=== PATIENT | male | born 1970 | race Caucasian/White ===

== ENCOUNTER → 2018-01-28 | Day surgery (SDC) | payer OTHER ==
[~2018-01-28] VITALS: Ht 182.9 cm; Wt 88.0 kg
--- NOTE | 2018-01-28 13:26 | Operative Report ---
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 Anesthesia: general endotracheal tube Operative/Procedure Note Note: Yaya as he is known was brought to the operating room after a suitable block was placed by anesthesia intravenous Kefzol was given sterile prep and drape was performed from the knee down to the foot proper timeout was performed and surgery was commenced with an Esmarch bandage used as tourniquet above the malleoli 8 medial incision was made over the hallux medial HALUCEAL nerve was discovered and protected throughout the procedure local bleeders were controlled with sparse use of clamp and cautery A longitudinal capsulotomy was made the sagittal sulcus of the first metatarsal was discovered a longitudinal bunionectomy was performed with a saw A Chevron osteotomy was now performed proximal to the center of the metatarsal head it was slid and correction was achieved the pizza wedge was excised and bone edges were smoothed A dorsal incision was now made along the extensor tendon to the second toe spreading was taken down clamp and cautery was used carefully the neurovascular bundles were discovered and the abductor hallucis tendon was discovered and transected from the base of the proximal phalanx of the great toe and from the insertion on the fibular sesamoid A PIP fusion flat to flat was now prepared using bone instruments the collateral ligaments of the PIP joint were taken and extensor lengthening was prepared Dissection of the second metatarsal head was now performed collaterals were removed and retractors were placed to safely protect the neurovascular bundles A Alexa osteotomy was now performed with an oscillating saw cutting exactly parallel to the sole of the foot the dorsal andrade was excised with a rongeur E metatarsal osteotomy was slid and then held with a 12 mm spin type breakoff screw which was hand tightened 8.35 K wire was then run out from the base of the middle phalanx turned around and run into the canal of the proximal phalanx we now somewhat hyper-corrected into plantarflexion the MP joint and ran the K wire into the metatarsal neck through the metatarsal head of 2 Mini C-arm PA and lateral images were obtained showing good position of all hardware and good correction his second metatarsal which was quite long was now in the proper arcade and phalanges were parallel We irrigated every 5 minutes of the procedure with weak Betadine solution and the tourniquet was dropped bleeders were controlled a corrective capsulorrhaphy taking the wedges out of the PLANTAR flap was performed these were all done using 3-0 Monocryl suture the extensor lengthening was closed with 3-0 Monocryl the subcutaneous tissue was closed with 3 and 4-0 Monocryl the skin was closed with running nylon and ointment dressing was applied a corrective drip bandage was applied the distal K wire was cut off and covered with a A hard shoe was applied and he returned to recovery having tolerated the procedure well Blood loss less than 5 mL complications none drains none specimens bone and capsule from right foot antibiotic Kefzol 2 g Lincoln Wagner M.D.
== END ==
LOC: STS 02:53
DX: M20.11 Hallux valgus (acquired), right foot (principal); M20.5X1 Other deformities of toe(s) (acquired), right foot
CPT/HCPCS: 88304; C1713; J0690; J2250